=== PATIENT | female | born 1955 | race Caucasian/White ===

== ENCOUNTER 2019-12-31 10:09 | Outpatient (CLI) | payer BC, SELFPAY ==
[2019-12-31 10:34] LABS: Basophils Percent Auto 0.3 % (0.2-1.2); Eosinophils Absolute Auto 0.1 K/mm3 (0-0.3); Eosinophils Percent Auto 2.2 % (0-4.4); Hematocrit 41.5 % (37.0-47.0); Immature Granulocyte Absolute 0.01 K/mm3 (0.00-0.031); Immature Granulocyte Percent A 0.2 % (0-0.5); Lymphocytes Absolute Auto 1.44 K/mm3 (0.9-3.2); Lymphocytes Percent Auto 22.4 % (18.3-44.2); Mean Corpuscular HGB Conc 33.7 g/dl (32-36); Mean Corpuscular Hemoglobin 33.7 pg (26-34); Mean Platelet Volume 9.2 fl (7.4-10.4); Monocytes Absolute Auto 0.7 K/mm3 (0.1-0.6); Neutrophils Absolute Auto 4.1 K/mm3 (1.3-6.7); Neutrophils Percent Auto 63.9 % (45.5-73.1); Platelet Count Result 206 k/mm3 (150-375); Red Blood Count 4.15 M/mm3 (4.2-5.4); Red Cell Distribution Width 11.9 % (11.5-14.5); White Blood Count 6.4 K/mm3 (4.5-10.0)
[2019-12-31 11:15] LABS: Alanine Aminotransferase 22 U/L (4-35); Albumin Level 4.3 g/dL (3.5-5.1); Alkaline Phosphatase 92 U/L (38-126); Aspartate Amino Transferase 28 U/L (14-36); Bilirubin,Total 0.8 mg/dL (0.2-1.3); Blood Urea Nitrogen 21 mg/dL (7-17); Calcium 9.7 mg/dL (8.4-10.2); Carbon Dioxide 29 mmol/L (22-30); Chloride 101 mmol/L (98-107); Estimated Glomerular Filt Rate > 60; Glucose 114 mg/dL (65-105); Potassium 4.2 mmol/L (3.4-5.0); Sodium 138 mmol/L (137-145)
[2020-01-02 04:11] LABS: CA 27.29 19 U/mL (<38)
== END 2019-12-31 10:10 | disposition home or self-care (01) ==
PROVIDERS: Visit Provider Internal Medicine Hematology & Oncology
DX: C50.411 Malignant neoplasm of upper-outer quadrant of right female breast (principal); Z17.0 Estrogen receptor positive status [ER+]
CPT/HCPCS: 36415; 80053; 85025; 86300

== ENCOUNTER 2020-03-24 10:19 | Outpatient (CLI) | payer BC, SELFPAY ==
[2020-03-24 10:31] LABS: Basophils Percent Auto 0.5 % (0.2-1.2); Eosinophils Absolute Auto 0.2 K/mm3 (0-0.3); Eosinophils Percent Auto 3.8 % (0-4.4); Hematocrit 39.2 % (37.0-47.0); Hemoglobin 13.5 g/dL (12.0-15.0); Immature Granulocyte Absolute 0.01 K/mm3 (0.00-0.031); Immature Granulocyte Percent A 0.2 % (0-0.5); Lymphocytes Absolute Auto 1.33 K/mm3 (0.9-3.2); Mean Corpuscular HGB Conc 34.4 g/dl (32-36); Mean Corpuscular Hemoglobin 33.6 pg (26-34); Mean Corpuscular Volume 97.5 fl (80-100); Mean Platelet Volume 9.1 fl (7.4-10.4); Monocytes Absolute Auto 0.7 K/mm3 (0.1-0.6); Monocytes Percent Auto 11.1 % (2.6-8.5); Neutrophils Absolute Auto 3.8 K/mm3 (1.3-6.7); Neutrophils Percent Auto 62.4 % (45.5-73.1); Platelet Count Result 205 k/mm3 (150-375); Red Blood Count 4.02 M/mm3 (4.2-5.4); Red Cell Distribution Width 12.2 % (11.5-14.5)
[2020-03-24 11:31] LABS: Alanine Aminotransferase 24 U/L (4-35); Alkaline Phosphatase 96 U/L (38-126); Aspartate Amino Transferase 31 U/L (14-36); Bilirubin,Total 0.5 mg/dL (0.2-1.3); Blood Urea Nitrogen 18 mg/dL (7-17); Calcium 9.4 mg/dL (8.4-10.2); Carbon Dioxide 27 mmol/L (22-30); Chloride 100 mmol/L (98-107); Estimated Glomerular Filt Rate > 60; Glucose 119 mg/dL (65-105); Potassium 4.2 mmol/L (3.4-5.0); Sodium 137 mmol/L (137-145)
[2020-03-29 23:12] LABS: CA 27.29 27 U/mL (<38)
== END 2020-03-24 10:20 | disposition home or self-care (01) ==
PROVIDERS: Visit Provider Internal Medicine Hematology & Oncology
DX: C50.411 Malignant neoplasm of upper-outer quadrant of right female breast (principal); Z17.0 Estrogen receptor positive status [ER+]
CPT/HCPCS: 36415; 80053; 85025; 86300

== ENCOUNTER 2020-07-28 08:41 | Outpatient (CLI) | payer BC, SELFPAY ==
[2020-07-28 08:57] LABS: Basophils Percent Auto 0.2 % (0.2-1.2); Eosinophils Absolute Auto 0.2 K/mm3 (0-0.3); Eosinophils Percent Auto 3.3 % (0-4.4); Hemoglobin 13.5 g/dL (12.0-15.0); Immature Granulocyte Absolute 0.01 K/mm3 (0.00-0.031); Immature Granulocyte Percent A 0.2 % (0-0.5); Lymphocytes Percent Auto 24.5 % (18.3-44.2); Mean Corpuscular HGB Conc 34.6 g/dl (32-36); Mean Corpuscular Hemoglobin 33.4 pg (26-34); Mean Corpuscular Volume 96.5 fl (80-100); Mean Platelet Volume 9.1 fl (7.4-10.4); Monocytes Absolute Auto 0.7 K/mm3 (0.1-0.6); Monocytes Percent Auto 14.3 % (2.6-8.5); Neutrophils Absolute Auto 2.8 K/mm3 (1.3-6.7); Neutrophils Percent Auto 57.5 % (45.5-73.1); Platelet Count Result 197 k/mm3 (150-375); Red Blood Count 4.04 M/mm3 (4.2-5.4); Red Cell Distribution Width 11.9 % (11.5-14.5); White Blood Count 4.9 K/mm3 (4.5-10.0)
[2020-07-28 11:45] LABS: Alanine Aminotransferase 34 U/L (4-35); Albumin Level 4.2 g/dL (3.5-5.1); Alkaline Phosphatase 89 U/L (38-126); Anion Gap 10 mmol/L (8-16); Aspartate Amino Transferase 41 U/L (14-36); Bilirubin,Total 0.5 mg/dL (0.2-1.3); Blood Urea Nitrogen 21 mg/dL (7-17); Calcium 9.3 mg/dL (8.4-10.2); Carbon Dioxide 28 mmol/L (22-30); Chloride 100 mmol/L (98-107); Cholesterol 110 mg/dL (0-200); Estimated Glomerular Filt Rate > 60; Glucose 132 mg/dL (65-105); HDL Direct 34 mg/dL; Potassium 4.2 mmol/L (3.4-5.0); Sodium 138 mmol/L (137-145); Triglycerides 112 mg/dL (<150)
[2020-07-28 11:47] LABS: Hemoglobin A1C 6.2 % (<5.7)
[2020-07-28 11:56] LABS: LDL Cholesterol Direct 52 mg/dL
[2020-08-04 06:58] LABS: CA 27.29 23 U/mL (<38)
== END 2020-07-28 08:42 | disposition home or self-care (01) ==
LOC: ANHLAB 08:42
PROVIDERS: PCP Family Medicine; Visit Provider Internal Medicine Hematology & Oncology
DX: R73.03 Prediabetes (principal); E03.9 Hypothyroidism, unspecified; E78.2 Mixed hyperlipidemia; C50.411 Malignant neoplasm of upper-outer quadrant of right female breast; Z17.0 Estrogen receptor positive status [ER+]
CPT/HCPCS: 36415; 80053; 80061; 83036; 84443; 85025; 86300

== ENCOUNTER 2020-11-03 12:26 | Outpatient (CLI) | payer BC, SELFPAY ==
[2020-11-03 12:58] LABS: Basophils Percent Auto 0.4 % (0.2-1.2); Eosinophils Absolute Auto 0.2 K/mm3 (0-0.3); Eosinophils Percent Auto 2.5 % (0-4.4); Hematocrit 39.9 % (37.0-47.0); Hemoglobin 13.8 g/dL (12.0-15.0); Immature Granulocyte Absolute 0.02 K/mm3 (0.00-0.031); Immature Granulocyte Percent A 0.3 % (0-0.5); Lymphocytes Absolute Auto 1.87 K/mm3 (0.9-3.2); Lymphocytes Percent Auto 24.9 % (18.3-44.2); Mean Corpuscular HGB Conc 34.6 g/dl (32-36); Mean Corpuscular Hemoglobin 33.6 pg (26-34); Mean Corpuscular Volume 97.1 fl (80-100); Mean Platelet Volume 9.4 fl (7.4-10.4); Monocytes Absolute Auto 0.8 K/mm3 (0.1-0.6); Neutrophils Absolute Auto 4.7 K/mm3 (1.3-6.7); Neutrophils Percent Auto 61.9 % (45.5-73.1); Platelet Count Result 230 k/mm3 (150-375); Red Blood Count 4.11 M/mm3 (4.2-5.4); White Blood Count 7.5 K/mm3 (4.5-10.0)
[2020-11-03 15:10] LABS: Alanine Aminotransferase 34 U/L (4-35); Albumin Level 4.1 g/dL (3.5-5.1); Alkaline Phosphatase 85 U/L (38-126); Anion Gap 6 mmol/L (8-16); Aspartate Amino Transferase 39 U/L (14-36); Bilirubin,Total 0.7 mg/dL (0.2-1.3); Blood Urea Nitrogen 21 mg/dL (7-17); Calcium 9.5 mg/dL (8.4-10.2); Carbon Dioxide 29 mmol/L (22-30); Chloride 102 mmol/L (98-107); Estimated Glomerular Filt Rate > 60; Glucose 113 mg/dL (65-105); Sodium 137 mmol/L (137-145)
[2020-11-06 08:00] LABS: CA 15-3 12 U/mL (<32)
== END 2020-11-03 12:27 | disposition home or self-care (01) ==
PROVIDERS: PCP Family Medicine; Visit Provider Internal Medicine Hematology & Oncology
DX: C50.411 Malignant neoplasm of upper-outer quadrant of right female breast (principal); Z17.0 Estrogen receptor positive status [ER+]
CPT/HCPCS: 36415; 80053; 85025; 86300

== ENCOUNTER 2020-11-03 13:58 | Outpatient (CLI) | payer BC, SELFPAY ==
--- NOTE | ~2020-11-03 | DEXA_ITS ---
Bone Density Report Name: Raquel Lee Age: 65 Sex: Female Ethnicity: White Date of : 1955 Indication: postmenopausal; height loss; cancer; Referring Provider: Josué Lopez Study: Bone densitometry was performed. Exam Date: November 03, 2020 Accession number: [id number] Bone Density: Region BMD T-score Z-score Classification AP Spine (L1-L4) 1.059 0.1 1.8 Normal Femoral Neck (Left) 0.954 0.9 2.4 Normal Total Hip (Left) 1.242 2.5 3.6 Normal Total Hip Bilateral Avg 1.255 2.6 3.7 Normal Femoral Neck (Right) 0.997 1.3 2.8 Normal Total Hip (Right) 1.266 2.7 3.8 Normal World Health Organization criteria for BMD impression classify patients as: Normal (T-score at or above -1.0), Osteopenia (T-score between -1.0 and -2.5), or Osteoporosis (T-score at or below -2.5). 10-year Fracture Risk: FRAX not reported because: All T-scores for Spine Total, Hip Total, Femoral Neck at or above -1.0 Clinical Information Provided by Patient: Has the following medical conditions: Cancer Patient maximum height was 66 Menopause Age: 46 No regular weight bearing exercise Drinks caffeinated beverages Onset of menses at age 13 Number of children 2 Impression: The patient has normal bone mass. Discussion: BONE DENSITY IS ABOVE THE MINIMUM DESIRABLE LEVEL AT ALL SKELETAL SITES TESTED. This patient?s bone mineral density is above the minimum desirable level (T-score -1.0 or better) at all sites measured. The patient should follow a healthful lifestyle (good nutrition with adequate calcium and vitamin D, and appropriate weight-bearing exercise). Follow-Up: Consider repeating this study in 5 years or sooner if there is some new clinical indication. Reported by: [facility] on 11/03/2020 2:37:00 PM. Reviewed, dictated and finalized at location [facility]
== END 2020-11-03 13:59 | disposition home or self-care (01) ==
PROVIDERS: PCP Family Medicine; Visit Provider Internal Medicine Hematology & Oncology
DX: M85.89 Other specified disorders of bone density and structure, multiple sites (principal)
CPT/HCPCS: 77080

== ENCOUNTER 2021-03-10 12:28 | Outpatient (CLI) | payer BC, SELFPAY ==
[2021-03-10 12:53] LABS: Basophils Percent Auto 0.4 % (0.2-1.2); Eosinophils Absolute Auto 0.1 K/mm3 (0-0.3); Eosinophils Percent Auto 1.8 % (0-4.4); Hematocrit 38.4 % (37.0-47.0); Hemoglobin 13.3 g/dL (12.0-15.0); Immature Granulocyte Absolute 0.01 K/mm3 (0.00-0.031); Immature Granulocyte Percent A 0.2 % (0-0.5); Lymphocytes Percent Auto 24.1 % (18.3-44.2); Mean Corpuscular HGB Conc 34.6 g/dl (32-36); Mean Corpuscular Hemoglobin 33.3 pg (26-34); Mean Corpuscular Volume 96.2 fl (80-100); Mean Platelet Volume 8.7 fl (7.4-10.4); Monocytes Absolute Auto 0.7 K/mm3 (0.1-0.6); Monocytes Percent Auto 13.5 % (2.6-8.5); Platelet Count Result 186 k/mm3 (150-375); Red Blood Count 3.99 M/mm3 (4.2-5.4); Red Cell Distribution Width 11.9 % (11.5-14.5)
[2021-03-10 16:18] LABS: Alanine Aminotransferase 38 U/L (4-35); Albumin Level 4.1 g/dL (3.5-5.1); Alkaline Phosphatase 98 U/L (38-126); Anion Gap 8 mmol/L (8-16); Aspartate Amino Transferase 44 U/L (14-36); Bilirubin,Total 0.6 mg/dL (0.2-1.3); Blood Urea Nitrogen 21 mg/dL (7-17); Calcium 9.4 mg/dL (8.4-10.2); Carbon Dioxide 27 mmol/L (22-30); Chloride 102 mmol/L (98-107); Estimated Glomerular Filt Rate > 60; Glucose 118 mg/dL (65-105); Potassium 4.1 mmol/L (3.4-5.0); Sodium 137 mmol/L (137-145)
[2021-03-13 06:53] LABS: CA 15-3 14 U/mL (<32)
== END 2021-03-10 12:29 | disposition home or self-care (01) ==
LOC: ANHLAB 12:30
PROVIDERS: PCP Family Medicine; Visit Provider Internal Medicine Hematology & Oncology
DX: C50.411 Malignant neoplasm of upper-outer quadrant of right female breast (principal); Z17.0 Estrogen receptor positive status [ER+]
CPT/HCPCS: 36415; 80053; 85025; 86300

== ENCOUNTER 2022-01-04 13:08 | Outpatient (RCR) | payer MEDICARE, SELFPAY ==
[2022-01-04 13:16] VITALS: BMI 42.2
[2022-01-04 13:22] VITALS: BMI 42.2
== END 2022-03-23 11:43 | disposition home or self-care (01) ==
LOC: ANHDMC 13:08
PROVIDERS: PCP Family Medicine; Visit Provider Family Medicine
DX: E11.9 Type 2 diabetes mellitus without complications (principal); Z71.3 Dietary counseling and surveillance
CPT/HCPCS: 97802

== ENCOUNTER 2022-04-06 13:04 | Outpatient (CLI) | payer MEDICARE, SELFPAY ==
[2022-04-06 13:22] LABS: Basophils Percent Auto 0.4 % (0.2-1.2); Eosinophils Absolute Auto 0.2 K/mm3 (0-0.3); Hematocrit 39.7 % (37.0-47.0); Hemoglobin 13.2 g/dL (12.0-15.0); Immature Granulocyte Absolute 0.02 K/mm3 (0.00-0.031); Immature Granulocyte Percent A 0.3 % (0-0.5); Lymphocytes Absolute Auto 1.48 K/mm3 (0.9-3.2); Lymphocytes Percent Auto 19.9 % (18.3-44.2); Mean Corpuscular HGB Conc 33.2 g/dl (32-36); Mean Corpuscular Hemoglobin 33.6 pg (26-34); Mean Platelet Volume 9.7 fl (7.4-10.4); Monocytes Absolute Auto 0.5 K/mm3 (0.1-0.6); Monocytes Percent Auto 6.6 % (2.6-8.5); Neutrophils Absolute Auto 5.3 K/mm3 (1.3-6.7); Neutrophils Percent Auto 70.8 % (45.5-73.1); Platelet Count Result 181 k/mm3 (150-375); Red Blood Count 3.93 M/mm3 (4.2-5.4); Red Cell Distribution Width 11.9 % (11.5-14.5); White Blood Count 7.4 K/mm3 (4.5-10.0)
[2022-04-06 13:27] LABS: Blood Urea Nitrogen 25 mg/dL (8-26); Carbon Dioxide 29 mmol/L (22-30); Chloride 102 mmol/L (98-109); Estimated Glomerular Filt Rate 56; Glucose 153 mg/dL (70-105); Ionized Calcium (POC) 1.17 mmol/L (1.11-1.31); Sodium 140 mmol/L (138-146)
[2022-04-06 15:04] LABS: Alanine Aminotransferase 22 U/L (6-35); Albumin Level 4.1 g/dL (3.5-5.1); Alkaline Phosphatase 86 U/L (38-126); Anion Gap 9 mmol/L (8-16); Aspartate Amino Transferase 30 U/L (14-36); Bilirubin,Total 0.8 mg/dL (0.2-1.3); Blood Urea Nitrogen 25 mg/dL (7-17); Calcium 9.6 mg/dL (8.4-10.2); Carbon Dioxide 29 mmol/L (22-30); Chloride 101 mmol/L (98-107); Estimated Glomerular Filt Rate > 60; Glucose 148 mg/dL (65-110); Potassium 3.9 mmol/L (3.4-5.0); Sodium 139 mmol/L (137-145)
== END 2022-04-06 13:05 | disposition home or self-care (01) ==
LOC: ANHLAB 13:07
PROVIDERS: PCP Family Medicine; Visit Provider Internal Medicine Hematology & Oncology
DX: C50.411 Malignant neoplasm of upper-outer quadrant of right female breast (principal); Z17.0 Estrogen receptor positive status [ER+]
CPT/HCPCS: 36415; 80047; 80053; 85025

== ENCOUNTER 2022-10-11 09:58 | Outpatient (CLI) | payer MEDICARE, SELFPAY ==
[2022-10-11 10:09] LABS: Basophils Percent Auto 0.3 % (0.2-1.2); Eosinophils Absolute Auto 0.3 K/mm3 (0-0.3); Eosinophils Percent Auto 4.7 % (0-4.4); Hematocrit 39.2 % (37.0-47.0); Hemoglobin 13.4 g/dL (12.0-15.0); Immature Granulocyte Absolute 0.02 K/mm3 (0.00-0.031); Immature Granulocyte Percent A 0.3 % (0-0.5); Lymphocytes Absolute Auto 1.64 K/mm3 (0.9-3.2); Lymphocytes Percent Auto 26.4 % (18.3-44.2); Mean Corpuscular HGB Conc 34.2 g/dl (32-36); Mean Corpuscular Hemoglobin 34.3 pg (26-34); Mean Corpuscular Volume 100.3 fl (80-100); Mean Platelet Volume 9.1 fl (7.4-10.4); Monocytes Absolute Auto 0.7 K/mm3 (0.1-0.6); Monocytes Percent Auto 11.6 % (2.6-8.5); Neutrophils Absolute Auto 3.5 K/mm3 (1.3-6.7); Neutrophils Percent Auto 56.7 % (45.5-73.1); Platelet Count Result 209 k/mm3 (150-375); Red Blood Count 3.91 M/mm3 (4.2-5.4); Red Cell Distribution Width 12.1 % (11.5-14.5); White Blood Count 6.2 K/mm3 (4.5-10.0)
[2022-10-11 10:29] LABS: Alanine Aminotransferase 33 U/L (6-35); Albumin Level 4.2 g/dL (3.5-5.1); Alkaline Phosphatase 95 U/L (38-126); Anion Gap 6 mmol/L (8-16); Aspartate Amino Transferase 41 U/L (14-36); Bilirubin,Total 0.6 mg/dL (0.2-1.3); Blood Urea Nitrogen 19 mg/dL (7-17); Calcium 9.5 mg/dL (8.4-10.2); Carbon Dioxide 31 mmol/L (22-30); Chloride 102 mmol/L (98-107); Estimated Glomerular Filt Rate > 60; Glucose 167 mg/dL (65-110); Potassium 4.3 mmol/L (3.4-5.0); Sodium 139 mmol/L (137-145)
[2022-10-13 21:01] LABS: CA 15-3 17 U/mL (<32)
== END 2022-10-11 09:59 | disposition home or self-care (01) ==
LOC: ANHLAB 10:00
PROVIDERS: PCP Family Medicine; Visit Provider Internal Medicine Hematology & Oncology
DX: C50.411 Malignant neoplasm of upper-outer quadrant of right female breast (principal); Z17.0 Estrogen receptor positive status [ER+]
CPT/HCPCS: 36415; 80053; 85025; 86300

== ENCOUNTER 2023-04-25 09:41 | Outpatient (CLI) | payer MEDICARE, SELFPAY ==
[2023-04-25 10:04] LABS: Basophils Percent Auto 0.4 % (0.2-1.2); Eosinophils Absolute Auto 0.2 K/mm3 (0-0.3); Eosinophils Percent Auto 2.8 % (0-4.4); Hematocrit 39.9 % (37.0-47.0); Hemoglobin 13.7 g/dL (12.0-15.0); Immature Granulocyte Absolute 0.01 K/mm3 (0.00-0.031); Immature Granulocyte Percent A 0.2 % (0-0.5); Lymphocytes Absolute Auto 1.44 K/mm3 (0.9-3.2); Lymphocytes Percent Auto 27.1 % (18.3-44.2); Mean Corpuscular HGB Conc 34.3 g/dl (32-36); Mean Corpuscular Hemoglobin 33.9 pg (26-34); Mean Corpuscular Volume 98.8 fl (80-100); Monocytes Absolute Auto 0.5 K/mm3 (0.1-0.6); Monocytes Percent Auto 9.2 % (2.6-8.5); Neutrophils Absolute Auto 3.2 K/mm3 (1.3-6.7); Neutrophils Percent Auto 60.3 % (45.5-73.1); Platelet Count Result 197 k/mm3 (150-375); Red Blood Count 4.04 M/mm3 (4.2-5.4); Red Cell Distribution Width 11.8 % (11.5-14.5); White Blood Count 5.3 K/mm3 (4.5-10.0)
[2023-04-25 12:09] LABS: Alanine Aminotransferase 42 U/L (6-35); Albumin Level 4.3 g/dL (3.5-5.1); Alkaline Phosphatase 102 U/L (38-126); Anion Gap 6 mmol/L (8-16); Aspartate Amino Transferase 55 U/L (14-36); Bilirubin,Total 0.8 mg/dL (0.2-1.3); Blood Urea Nitrogen 23 mg/dL (7-17); Carbon Dioxide 32 mmol/L (22-30); Chloride 98 mmol/L (98-107); Estimated Glomerular Filt Rate > 60; Glucose 188 mg/dL (65-110); Potassium 4.2 mmol/L (3.4-5.0); Sodium 136 mmol/L (137-145)
[2023-04-29 06:12] LABS: CA 15-3 14 U/mL (<32)
== END 2023-04-25 09:42 | disposition home or self-care (01) ==
LOC: ANHLAB 09:44
PROVIDERS: PCP Family Medicine; Visit Provider Internal Medicine Hematology & Oncology
DX: C50.411 Malignant neoplasm of upper-outer quadrant of right female breast (principal); Z17.0 Estrogen receptor positive status [ER+]
CPT/HCPCS: 36415; 80053; 85025; 86300

== ENCOUNTER 2023-10-23 12:16 | Outpatient (CLI) | payer MEDICARE, SELFPAY ==
[2023-10-23 12:31] LABS: Basophils Percent Auto 0.4 % (0.2-1.2); Eosinophils Absolute Auto 0.1 K/mm3 (0-0.3); Eosinophils Percent Auto 1.5 % (0-4.4); Hematocrit 37.2 % (37.0-47.0); Hemoglobin 12.9 g/dL (12.0-15.0); Immature Granulocyte Absolute 0.03 K/mm3 (0.00-0.031); Immature Granulocyte Percent A 0.3 % (0-0.5); Lymphocytes Absolute Auto 1.58 K/mm3 (0.9-3.2); Lymphocytes Percent Auto 16.8 % (18.3-44.2); Mean Corpuscular HGB Conc 34.7 g/dl (32-36); Mean Corpuscular Hemoglobin 33.5 pg (26-34); Mean Corpuscular Volume 96.6 fl (80-100); Mean Platelet Volume 8.8 fl (7.4-10.4); Monocytes Absolute Auto 0.8 K/mm3 (0.1-0.6); Monocytes Percent Auto 8.9 % (2.6-8.5); Neutrophils Absolute Auto 6.8 K/mm3 (1.3-6.7); Neutrophils Percent Auto 72.1 % (45.5-73.1); Platelet Count Result 221 k/mm3 (150-375); Red Blood Count 3.85 M/mm3 (4.2-5.4); Red Cell Distribution Width 11.9 % (11.5-14.5); White Blood Count 9.4 K/mm3 (4.5-10.0)
[2023-10-23 14:11] LABS: Alanine Aminotransferase 27 U/L (6-35); Albumin Level 4.2 g/dL (3.5-5.1); Alkaline Phosphatase 92 U/L (38-126); Anion Gap 6 mmol/L (8-16); Aspartate Amino Transferase 30 U/L (14-36); Bilirubin,Total 0.8 mg/dL (0.2-1.3); Blood Urea Nitrogen 22 mg/dL (7-17); Calcium 10.4 mg/dL (8.4-10.2); Carbon Dioxide 30 mmol/L (22-30); Chloride 101 mmol/L (98-107); Estimated Glomerular Filt Rate > 60; Glucose 179 mg/dL (65-110); Potassium 3.8 mmol/L (3.4-5.0); Sodium 137 mmol/L (137-145)
[2023-10-26 07:30] LABS: CA 15-3 16 U/mL (<32)
== END 2023-10-23 12:17 | disposition home or self-care (01) ==
LOC: ANHLAB 12:18
PROVIDERS: PCP Family Medicine; Visit Provider Internal Medicine Hematology & Oncology
DX: C50.411 Malignant neoplasm of upper-outer quadrant of right female breast (principal); Z17.0 Estrogen receptor positive status [ER+]
CPT/HCPCS: 36415; 80053; 85025; 86300

== ENCOUNTER 2024-04-23 13:35 | Outpatient (CLI) | payer MEDICARE, SELFPAY ==
[2024-04-23 13:51] LABS: Basophils Percent Auto 0.4 % (0.2-1.2); Eosinophils Absolute Auto 0.1 K/mm3 (0-0.3); Eosinophils Percent Auto 1.1 % (0-4.4); Hematocrit 38.7 % (37.0-47.0); Hemoglobin 13.4 g/dL (12.0-15.0); Immature Granulocyte Absolute 0.02 K/mm3 (0.00-0.031); Immature Granulocyte Percent A 0.3 % (0-0.5); Lymphocytes Absolute Auto 1.75 K/mm3 (0.9-3.2); Lymphocytes Percent Auto 22.3 % (18.3-44.2); Mean Corpuscular HGB Conc 34.6 g/dl (32-36); Mean Corpuscular Hemoglobin 33.9 pg (26-34); Monocytes Absolute Auto 0.9 K/mm3 (0.1-0.6); Neutrophils Absolute Auto 5.1 K/mm3 (1.3-6.7); Neutrophils Percent Auto 64.9 % (45.5-73.1); Platelet Count Result 225 k/mm3 (150-375); Red Blood Count 3.95 M/mm3 (4.2-5.4); Red Cell Distribution Width 11.9 % (11.5-14.5); White Blood Count 7.9 K/mm3 (4.5-10.0)
[2024-04-23 16:37] LABS: Alanine Aminotransferase 35 U/L (6-35); Albumin Level 4.3 g/dL (3.5-5.1); Alkaline Phosphatase 89 U/L (38-126); Anion Gap 10 mmol/L (4-12); Aspartate Amino Transferase 36 U/L (14-36); Bilirubin,Total 0.8 mg/dL (0.2-1.3); Blood Urea Nitrogen 23 mg/dL (7-17); Calcium 9.9 mg/dL (8.4-10.2); Carbon Dioxide 30 mmol/L (22-30); Chloride 95 mmol/L (98-107); Estimated Glomerular Filt Rate > 60; Glucose 124 mg/dL (65-110); Potassium 4.2 mmol/L (3.4-5.0); Sodium 135 mmol/L (137-145)
[2024-04-25 04:00] LABS: CA 15-3 14 U/mL (<32)
== END 2024-04-23 13:36 | disposition home or self-care (01) ==
LOC: ANHLAB 13:39
PROVIDERS: PCP Family Medicine; Visit Provider Internal Medicine Hematology & Oncology
DX: C50.411 Malignant neoplasm of upper-outer quadrant of right female breast (principal); Z17.0 Estrogen receptor positive status [ER+]
CPT/HCPCS: 36415; 77080; 80053; 85025; 86300

== ENCOUNTER 2024-04-23 14:14 | Outpatient (CLI) | payer MEDICARE, SELFPAY ==
--- NOTE | ~2024-04-23 | DEXA_ITS ---
Bone Density Report Name: ROYER METZGER Age: 68 Sex: Female Ethnicity: White Date of : 1955 Indication: postmenopausal; screening for osteoporosis; cancer; Referring Provider: GEORGIE DAVENPORT Study: Bone densitometry was performed. Exam Date: April 23, 2024 Accession number: [id number] Bone Density: Region BMD T-score Z-score Classification AP Spine(L1-L4) 1.086 0.4 2.3 Normal Femoral Neck (Left) 0.939 0.8 2.5 Normal Total Hip (Left) 1.176 1.9 3.3 Normal Femoral Neck (Right) 0.965 1.0 2.7 Normal Total Hip (Right) 1.200 2.1 3.5 Normal Total Hip Mean 1.188 2.0 3.4 Normal World Health Organization criteria for BMD impression classify patients as: Normal (T-score at or above -1.0), Osteopenia (T-score between -1.0 and -2.5), or Osteoporosis (T-score at or below -2.5). 10-year Fracture Risk: FRAX not reported because: All T-scores for Spine Total, Hip Total, Femoral Neck at or above -1.0 Previous Exams: Region Exam Age BMD T-score BMD Change BMD Change Date g/cm2 vs Baseline vs Previous AP Spine (L1-L4) 04/23/2024 68 1.086 0.4 0.028 (2.6%)# 0.028 (2.6%)# 11/03/2020 65 1.059 0.1 Total Hip(Left) 04/23/2024 68 1.176 1.9 -0.066 (-5.3%) -0.066 (-5.3%) 11/03/2020 65 1.242 2.5 Total Hip(Right) 04/23/2024 68 1.200 2.1 -0.066 (-5.2%) -0.066 (-5.2%) 11/03/2020 65 1.266 2.7 *Denotes significance at 95% confidence level, LSC for AP Spine = 0.022 g/cm2, LSC for Total Hip = 0.027 g/cm2 # Denotes dissimilar scan types or analysis methods Clinical Information Provided by Patient: Has used the following medications: Vitamin D Has the following medical conditions: Cancer Patient maximum height was 65 Menopause Age: 46 No regular weight bearing exercise Drinks caffeinated beverages Onset of menses at age 14 Number of children 2 Impression: The patient has normal bone mass. No significant bone loss was observed. Discussion: LOW RISK OF FRACTURE; BONE DENSITY IS WELL ABOVE THE MINIMUM DESIRABLE LEVEL AND ABOVE AVERAGE FOR AGE AND SEX AT ALL SKELETAL SITES TESTED. This person's bone density is above expected limits for age and sex. This is rarely clinically significant, but should be pursued if there are significant musculoskeletal complaints. The patient should follow a healthful lifestyle (good nutrition with adequate calcium and vitamin D, and appropriate weight-bearing exercise). Follow-Up: Consider re
== END 2024-04-23 14:15 | disposition home or self-care (01) ==
LOC: ANHIMG 14:14
PROVIDERS: PCP Family Medicine; Visit Provider Internal Medicine Hematology & Oncology
DX: M85.89 Other specified disorders of bone density and structure, multiple sites (principal)
CPT/HCPCS: 77080

== ENCOUNTER 2024-10-31 13:23 | Outpatient (CLI) | payer MEDICARE, SELFPAY ==
--- OUTSIDE RECORDS SUMMARY | 2024-10-31 13:36 | XMS_ITS | Referral Summary ---
Author Organization [address] Address [address] [place] [id number] Care Team Providers Care Trommel Tender Name Role Phone Jeanne Isabel MD Primary Care Provider [phone] Allergies Active Allergy Reactions Criticality Noted Date Comments Amoxicillin-Pot Clavulanate Hives High 09/15/19 16 Cephalexin Hives High 09/15/2015 Medications albuterol HFA (ProAir HFA) 90 mcg/actuation inhalerIndicati ons:Wheezing Inhale 2 puffs every 4 (four) hours as needed for wheezing or shortness of breath 8.5 g 2 Active anastrozole (ARIMIDEX) 1 mg tablet Take 1 tablet (1 mg total) by mouth daily 9 Active clindamycin (CLEOCIN) 150 mg capsule TAKE 1 CAPSULE BY MOUTH EVERY 6 HOURS UNTIL ALL TAKEN 2 Active levothyroxine (SYNTHROID) 100 mcg tablet 9 Active valsartan-hydro chlorothiazide (DIOVAN-HCT) 320-25 mg per tablet Take 1 tablet by mouth 9 Active benzonatate (TESSALON) 100 mg capsuleIndicati ons:Cough Take 1 capsule (100 mg total) by mouth 3 (three) times a day as needed for cough 42 capsule 3 Active Active Problems No known active problems Social History Tobacco Use Types Packs/Day Years Used Date Smoking Tobacco: Never Smokeless Tobacco: Never Comments Unknown Sex and Gender Information Value Date Recorded Sex Assigned at Not on file 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 Gender Identity Not on file Sexual Orientation Not on file Last Filed Vital Signs Vital Sign Reading Time Taken Comments Blood Pressure 142/74 07/04/2023 6:46 PM CDT Pulse 84 07/04/2023 6:46 PM CDT Temperature 36.9 C (98.5 F) 07/04/2023 6:46 PM CDT Respiratory Rate 20 07/04/2023 6:46 PM CDT Oxygen Saturation 98% 07/04/2023 6:46 PM CDT Inhaled Oxygen Concentration - - Weight 117.9 kg (260 lb) 07/01/2023 10:48 AM CDT Height 162.6 cm (5' 4 ) 07/01/2023 10:48 AM CDT Body Mass Index 44.63 07/01/2023 10:48 AM CDT Plan of Treatment Not on file Procedures Procedure Name Priority Date/Time Associated Diagnosis Comments DIGITAL MAMMOGRAPHY Routine 12/16/2013 1 1:19 AM CDT from Last 3 Months or Most Recently Relevant to Health Maintenance Results * DIGITAL MAMMOGRAPHY (12/16/2013 11:19 AM CDT) Anatomical Region Laterality Modality Breast Mammography 12/16/2013 11:1 9 AM CDT Narrative 12/16/2013 11:55 AM CDT Vrl Screening Mamm Bi Acc#: [id number] Performed by: raj DATE OF EXAM: Dec 16 2013 CLINICAL HISTORY: Screen. RESULT: Two views of each breast correlated to the study dated 03/30/10 demonstrate mild fibroglandular density bilaterally. There are benign breast calcifications bilaterally. No suspicious mass or calcification is seen to suggest mammographic evidence of malignancy. Digital technology was employed plus computer-aided detection software (R2) was utilized in interpretation of these images. This facility utilizes a reminder system to notify patients of yearly mammograms. IMPRESSION: NO DEFINITIVE MAMMOGRAPHIC EVIDENCE OF MALIGNANCY. RECOMMEND ANNUAL FOLLOW UP. BI-RADS CATEGORY 2: BENIGN FINDINGS. Interpreting Physician: ASHLEE WHALEY M.D. Read on: Dec 16 2013 11:19A Transcribed by: ROSAURA On: Dec 16 2013 11:53A Approved Electronically by: ASHLEE WHALEY M.D. on: Dec 16 2013 11:55A Ordering DR: ALYSSA GUEVARA Attending : ALYSSA GUEVARA Procedure Note Provider, MD Shruti - 01/11/2017 Vrl Screening Mamm Bi Acc#: [id number] Performed by: cd DATE OF EXAM: Dec 16 2013 CLINICAL HISTORY: Screen. RESULT: Two views of each breast correlated to the study dated 03/30/10demonstrate mild fibroglandular density bilaterally. There are benignbreast calcifications bilaterally. No suspicious mass or calcification isseen to suggest mammographic evidence of malignancy. Digital technologywas employed plus computer-aided detection software (R2) was utilized ininterpretation of these images. This facility utilizes a reminder systemto notify patients of yearly mammograms. IMPRESSION: NO DEFINITIVE MAMMOGRAPHIC EVIDENCE OF MALIGNANCY. RECOMMEND ANNUALFOLLOW UP. BI-RADS CATEGORY 2: BENIGN FINDINGS. Interpreting Physician: ASHLEE WHALEY M.D. Read on: Dec 16 2013 11:19A Transcribed by: ROSAURA On: Dec 16 2013 11:53A Approved Electronically by: ASHLEE WHALEY M.D. on: Dec 16 2013 11:55A Ordering DR: ALYSSA GUEVARA Attending DR: ALYSSA GUEVARA us Historical Provider MD MUNOZ MAMMO PROCEDURES Sabrina l Result from Last 3 Months or Most Recently Relevant to Health Maintenance Insurance [facility]ICARE [facility] Care Teams Trommel Tender Relationship Specialty Start Date End Date Jeanne Isabel MD PCP - General Family Medicine 10/30/21
--- OUTSIDE RECORDS SUMMARY | 2024-10-31 13:36 | XMS_ITS | Clinical Summary ---
Author Organization [facility] Address [facility] [place] [address] Care Team Providers Care Dev Technical Mgr Name Role Phone Unavailable Primary Care Provider Unavailabl e Source Comments [facility],non-owned Affiliates and Associated Physician Practices is amultiple site organization consisting of ambulatory clinics and hospital sitesin [place], [place], [place] and [place]. This disclosure is being madepursuant to the Care Everywhere program and may not contain all information available regarding this patient. Last updated 18.[facility] [employer] Social History Tobacco Use Types Packs/Day Years Used Date Smoking Tobacco: Never Assessed Sex and Gender Information Value Date Recorded Sex Assigned at Not on file Gender Identity Not on file Sexual Orientation Not on file Plan of Treatment Health Maintenance Due Date Last Done Comments BONE DENSITY TESTING 1955 COLOGUARD (AGES 45-75) - COL ON CA SCREENING 1955 COLON MONITORING 1955 COLONOSCOPY - COLON CA SCREENING 1955 CT COLONOGRAPHY - COLON CA SCREENING 1955 Colorectal Cancer Screening 1955 FIT - COLON CA SCREENING 1955 FLEX SIG - COLON CA SCREENING 1955 LIPID TESTING 1955 HEPATITIS C SCREENING 06/11/1974 DTAP/TDAP/TD VACCINES (1 - Tdap) 1975 PNEUMOCOCCAL VACCINE 50+ (1 of 1 - PCV) 2006 ZOSTER VACCINE (1 of 2) 2006 MAMMOGRAM 11/09/2020 11/09/2018, 10/31/2018 COVID-19 VACCINE (1 - 2023-2 5 season) 2024 INFLUENZA VACCINE (#1) 2024 9, 06/28/2016 DEPRESSION SCREENING 09/11/2024 Respiratory Syncytial Virus (RSV) Vaccine Pt: or over 60 yrs (1 - 1-dose 75+ series) 2031 HEPATITIS B VACCINE Aged Out No longe r eligible based on patient's age to complete this topic HIB VACCINE Aged Out No longer eligi ble based on patient's age to complete this topic HPV VACCINE Aged Out No longer eligi ble based on patient's age to complete this topic MENINGOCOCCAL (Group B) VACCINE Aged Out No longer eligible b ased on patient's age to complete this topic MENINGOCOCCAL VACCINE Aged Out No james jigar eligible based on patient's age to complete this topic
--- OUTSIDE RECORDS SUMMARY | 2024-10-31 13:36 | XMS_ITS | Clinical Summary ---
Author Organization [facility] Address [address] [address] Phone Care Team Providers Care Environmental Maintenance Worker Name Role Phone Jeanne Isabel MD Primary Care Provider [phone] Allergies Active Allergy Reactions Criticality Noted Date Comments Amoxicillin-Pot Clavulanate Hives 09/15/19 16 Cephalexin Hives 09/15/2015 Medications GLUCOSAMINE CHONDROITIN COMPLX POIndications:Prima ry osteoarthritis of right hip Take 1,288 mg by mouth daily. Active Multiple Vitamins-Minerals (PRESERVISION AREDS PO) Take 1 Tab by mouth daily. Active anastrozole (ARIMIDEX) 1 MG Tablet Take 1 mg by mouth daily 3 9 Active levothyroxine (SYNTHROID) 100 MCG TabletIndications:H ypothyroidism (acquired) TAKE ONE TABLET BY MOUTH DAILY 90 Tab 1 0 Active valsartan-hydroCHLO ROthiazide (DIOVAN-HCT) 320-25 MG TabletIndications:E ssential hypertension TAKE ONE TABLET BY MOUTH DAILY 90 Tab 1 0 Active Active Problems Problem Noted Date Diagnosed Date Infiltrating ductal carcinoma of right breast Prediabetes 09/25/2018 ASCUS of cervix with negative high risk HPV 06/11 Hypothyroidism (acquired) 03/15/2016 IFG (impaired fasting glucose) 03/15/2016 Obesity, Class III, BMI 40-49.9 (morbid obesity) 09/15/2015 Essential hypertension 09/15/2015 Primary osteoarthritis of right hip 09/15/2015 Resolved Problems Problem Noted Date Diagnosed Date Resolved Date Hyperglycemia 03/26/2019 07/09/2019 Immunizations Immunization Administration Dates Next Due Covid-19, Mrna, Lnp-s, Pf, 3 0 Mcg/0.3 Ml Dose (Pfizer) 2021,12/03/2020,11/12/2020 Covid-19, Mrna, Lnp-s, Pf, 3 0 Mcg/0.3 Ml Dose, Tigre-sucrose ([employer] top) 03/28/2022 Influenza Vaccine, Quadrivalent, PF 07/09/2019,0 11/23/2018 Influenza, High-dose, Quadrivalent 2021 PUR FLU 3+ YRS PRES FREE QUAD IM 06/28/2016 TD VACCINE 06/25/2010 TDAP Vaccine 07/09/2019 Zoster Vaccine Recombinant 10/14/2019,08/13/2019 Zoster Vaccine, live 09/16/2014 Family History Medical History Relation Name Comments Gout Father Chronic Obstructive Pulmonary Disease Mother Relation Name Status Comments Father Alive Mother Alive Social History Tobacco Use Types Packs/Day Years Used Date Smoking Tobacco: Never Smokeless Tobacco: Never Tobacco Cessation:Counseling Given: Yes Alcohol Use Standard Drinks/Week Comments No 0 (1 standard drink = 0.6 oz pur e alcohol) PHQ-2 Answer Date Recorded PHQ-2 Score 0 05/10/2019 Comments No Sex and Gender Information Value Date Recorded Sex Assigned at Not on file Legal Sex Female 11:00 PM CDT Gender Identity Not on file Sexual Orientation Not on file Last Filed Vital Signs Vital Sign Reading Time Taken Comments Blood Pressure 130/78 07/09/2019 8:54 AM CDT Pulse 76 07/09/2019 8:54 AM CDT Temperature 36.7 C (98.1 F) 07/09/2019 8:54 AM CDT Respiratory Rate 18 07/09/2019 8:54 AM CDT Oxygen Saturation 97% 07/09/2019 8:54 AM CDT Inhaled Oxygen Concentration - - Weight 114.7 kg (252 lb 12.8 oz) 07/09/2019 8:54 AM CDT Height 162.6 cm (5' 4 ) 07/09/2019 8:54 AM CDT Body Mass Index 43.39 07/09/2019 8:54 AM CDT Plan of Treatment Health Maintenance Due Date Last Done Comments DEXA Bone Density 1955 Hepatitis C Virus (HCV) Screening 1955 Pneumococcal Immunization (50+ years) (1 of 2 - PCV) 1975 Immunochemical Fecal Occult Blood 2006 Respiratory Syncytial Virus (RSV) Immunization (Adult) (1 - Risk 60-74 years 1-dose series) 2016 Colonoscopy High Risk 04/28/2020 Mammogram 10/06/2021 10/06/2020, 10/13, 02/02/2016 Cologuard 10/18/2021 10/18/2018 Colorectal Cancer Screening 10/18/2021 Influenza Immunization (#1) 05/12/202401/2021, 07/09/2019, 11/23/2018, Additional history exists SARS-COV-2 Immunization ( season) 2024 03/28/2022, 2021, 12/03/2020, Additional history exists Colonoscopy 10/18/2028 10/18/2018 Td Immunization Every 10 Years (Adults With 1 Tdap) 07/09/2029 07/09/2019, 06/25/2010 Pap Smear Discontinued 09/25/2018, 09/11, 03/28/2017, Additional history exists Zoster Immunization Completed 10/14/2019, 08/13/2019, 09/16/2014 Hepatitis B Immunization Aged Out No longer eligible based on patient's age to complete this topic Meningococcal Immunization (ACWY) Aged Out No longer eligible based on patient's age to complete this topic Rotavirus Immunization Aged Out No lo nger eligible based on patient's age to complete this topic Procedures Procedure Name Priority Date/Time Associated Diagnosis Comments [facility] SCREENING BILATERAL DIGITAL W CAD W SASHA Routine 10/31/2018 8:53 AM FIRE DEPARTMENT MARINE ENGINEER Screening for malignant neoplasm of breast COLOGUARD Routine 10/18/2018 7:05 AM FIRE DEPARTMENT MARINE ENGINEER Screening for malignant neoplasm of colon Screening for malignant neoplasm of the rectum PAP COLLECTION Routine 09/25/2018 Well woman exam with routine gynecological exam from Last 3 Months or Most Recently Relevant to Health Maintenance Results * [facility] SCREENING BILATERAL DIGITAL W CAD W SASHA (10/31/2018 8:53 AM FIRE DEPARTMENT MARINE ENGINEER) Anatomical Region Laterality Modality breast Bilateral Mammography 10/31/2018 8:17 AM FIRE DEPARTMENT MARINE ENGINEER Narrative 10/31/2018 3:16 PM FIRE DEPARTMENT MARINE ENGINEER - [facility] SCREENING BILATERAL DIGITAL W CAD W SASHA BILATERAL DIGITAL SCREENING MAMMOGRAM 3D/2D WITH CAD WITH MEDIOLATERAL OBLIQUE CRANIOCAUDAL: 10/31/2018 The study was acquired using digital technology and interpreted from soft copy. Current study was also evaluated with ICAD version 7.2. CLINICAL: Routine screening. Patient has gained 36 lbs since last exam. Due to patient body habitus, additional images were taken in an effort to obtain adequate tissue. No personal history of cancer. No family history of breast cancer. COMPARISONS: Comparison is made to exams dated: 02/02/2016 [facility], 12/16/2013, and 03/30/2010 [facility]. BREAST TISSUE:There are scattered fibroglandular densities in both breasts. FINDINGS: There is a mass in the right breast at 11 o'clock posterior depth. No other significant masses, calcifications, or other findings are seen in either breast. IMPRESSION: BI-RAD 0 ADDITIONAL IMAGING EVALUATION NEEDED The mass in the right breast needs additional evaluation. An immediate follow-up is recommended. The patient has been or will be contacted. Electronically signed by: Anne coleman/crystal:10/31/2018 10:14:16 Homicide Squad Commanding Officer: Ella Ayala (R)(Negar), [facility] letter sent: Additional Imaging Reading location: [facility] BI-RADS: 0 Additional Imaging Evaluation Needed Procedure Note Anne Leon MD - 10/31/2018 - [facility] SCREENING BILATERAL DIGITAL W CAD W SASHA BILATERAL DIGITAL SCREENING MAMMOGRAM 3D/2D WITH CAD WITH MEDIOLATERAL OBLIQUE CRANIOCAUDAL: 10/31/2018 The study was acquired using digital technology and interpreted from soft copy. Current study was also evaluated with ICAD version 7.2. CLINICAL: Routine screening. Patient has gained 36 lbs since last exam. Due to patient body habitus, additional images were taken in an effort to obtain adequate tissue. No personal history of cancer. No family history of breast cancer. COMPARISONS: Comparison is made to exams dated: 02/02/2016 [facility], 12/16/2013, and 03/30/2010 [facility]. BREAST TISSUE:There are scattered fibroglandular densities in both breasts. FINDINGS: There is a mass in the right breast at 11 o'clock posterior depth. No other significant masses, calcifications, or other findings are seen in either breast. IMPRESSION: BI-RAD 0 ADDITIONAL IMAGING EVALUATION NEEDED The mass in the right breast needs additional evaluation. An immediate follow-up is recommended. The patient has been or will be contacted. Electronically signed by: Anne coleman/crystal:10/31/2018 10:14:16 Homicide Squad Commanding Officer: Ella Felder)(M), [facility] letter sent: Additional Imaging Reading location: [facility] BI-RADS: 0 Additional Imaging Evaluation Needed us Mari Kent MD IM MAMMO ORDERABLES Final R esult * COLOGUARD (10/18/2018 7:05 AM FIRE DEPARTMENT MARINE ENGINEER) Cologuard Negative Not Applicable [employer] Comment: A negative result indicates a low likelihood that a colorectal cancer (CRC) or an advanced adenoma (adenomatous polyps with more advanced pre-malignant features) is present. The chance that a person with a negative Cologuard test has a colorectal cancer is less than 1 in 1500 (negative predictive value >99.9%) or has an advanced adenoma is less than 5.3% (negative predictive value 94.7%). These data are based on a prospective cross-sectional screening study of 10,000 individuals at average risk for colorectal cancer who were screened with both Cologuard and colonoscopy. (Liang Yuan al, N Engl J Med 2014;370(14):8256-5617) COLOGUARD RE-SCREENING RECOMMENDATION: Periodic routine colorectal cancer screening is an important part of preventive healthcare for asymptomatic persons at average risk for colorectal cancer. Following a negative Cologuard result, the [place] [employer] and U.S. [facility]-Society Task Force screening guidelines recommend a Cologuard re-screening interval of 3 years. References: [place] [employer] (ACS). Colorectal cancer prevention and early detection. [place], [place]: [place] [employer]; [updated 2015Jan 02]. https://www.cancer.org/cancer/gfvqx-tejxud-teiism/qlzqwfqbe-zehfomgjj-epqfuxc/ acs-recommendations.html. Accessed May 11, 2018; Tal DK, Lizbeth CR, Daniel GarciaK, Colorectal Cancer Screening: Recommendations for Physicians and Patients from the U.S. Multi-Society Task Force on Colorectal Cancer Screening, Am J Gastroenterology 2017; 112:9625-3717. Test Type: Composite algorithmic analysis of stool DNA-biomarkers with hemoglobin immunoassay. Quantitative values of individual biomarkers are not reportable and are not associated with individual biomarker result reference ranges. Precautions and Limitations: Cologuard is intended for colorectal cancer screening of adults of either sex, 50 years or older, who are at typical average-risk for colorectal cancer. A negative Cologuard test result does not guarantee the absence of colorectal cancer or advanced adenoma (pre-cancer). Patients with a negative Cologuard test result should be advised to continue participating in a colorectal cancer screening program. Cologuard may produce a positive result, even though a colonoscopy may not find colorectal cancer or precancerous polyps. The performance of Cologuard has been established in a cross sectional study (i.e., single point in time). Performance has not been evaluated in adults who have been previously tested with Cologuard or in patients less than 50 years of age. Cologuard has been approved for use by the U.S. FDA. Cologuard performance data in a 10,000 patient pivotal study using colonoscopy as the reference method can be accessed at the following location: www.[employer].com/results. Additional description of the Cologuard test process, warnings and precautions can be found at www.cologuardtest.com. Rx Only. Stool specimen (specimen) 10/18/2018 7:05 AM FIRE DEPARTMENT MARINE ENGINEER 10/19/2018 10:20 AM FIRE DEPARTMENT MARINE ENGINEER us Mari Knet MD BODY FLUIDS & STOOLS ORDERAB LES Final Result [facility] [address] [place] [address], [place] [phone] * PAP COLLECTION (09/25/2018) us Mari Kent MD [place] - PREVENT MED Final Resul t from Last 3 Months or Most Recently Relevant to Health Maintenance Insurance [facility] Care Teams Environmental Maintenance Worker Relationship Specialty Start Date End Date Jeanne Isabel MD [address] [place] [address] PCP - General Family Medicine 05/24/22
--- OUTSIDE RECORDS SUMMARY | 2024-10-31 13:36 | XMS_ITS | Clinical Summary ---
Author Organization [facility] GIOVANNAKarine OSUNA [place] Address [address] [place] [address] Care Team Providers Care Element Winding Machine Tender Name Role Phone Jeanne Isabel MD Primary Care Provider [phone] Allergies Active Allergy Reactions Criticality Noted Date Comments Amoxicillin-Pot Clavulanate Hives High 09/15/19 16 Cephalexin Hives High 09/15/2015 Medications glucosam/chond /msm/boron/hya l (GLUCOSAMINE-C HONDR, MSM-HYAL, ORAL) Take 1,288 mg by mouth. Active valsartan-hydr oCHLOROthiazid e (DIOVAN HCT) 320-25 mg tablet Take 1 Tablet by mouth. 9 Active vit A/vit C/vit E/zinc/copper (ICAPS AREDS ORAL) Take by mouth. Active levothyroxine 100 mcg tablet 0 9 Active clindamycin (CLEOCIN) 150 mg capsule TAKE 1 CAPSULE BY MOUTH EVERY 6 HOURS UNTIL ALL TAKEN 2 Active metFORMIN (GLUCOPHAGE XR) 500 mg Extended Release 24 hour tablet 4 Active anastrozole (ARIMIDEX) 1 mg tabletIndicati ons:Malignant neoplasm of upper-outer quadrant of right breast in female, estrogen receptor positive (CMS/HCC) TAKE ONE TABLET BY MOUTH DAILY 90 Tablet 5 Active anastrozole (ARIMIDEX) 1 mg tabletIndicati ons:Malignant neoplasm of upper-outer quadrant of right breast in female, estrogen receptor positive (CMS/HCC) take one tablet by mouth daily 30 Tablet 4 10/03/19 25 Discontinued Active Problems Patient Care Coordination No te Formatting of this note migh t be different from the original. Primary Care: No primary care provider on file. Referring Provider: Not in an encounter context. Other: Dr. Samara Vee MD Problem Noted Date Diagnosed Date History of external beam radiation therapy 04/22 Seroma of breast 01/15/2019 Morbid obesity with body mass index of 40.0-49.9 01/15/2019 Malignant neoplasm of upper- outer quadrant of right breast in female, estrogen receptor positive 12/05/2018 Cancer Encounters Date Type Department Care Team Description 10/29/2024 External Device Data STL ABSTRACTION Provider, Abstract 10/03/2024 Refill [facility] Oncology and Hematology - Sukhjinder [address] [place] [address] [address] Josué Lopez MD Malignant neoplasm of upper-outer quadrant of right breast in female, estrogen receptor positive (CMS/HCC) 10/02/2024 External Device Data STL ABSTRACTION Provider, Abstract 10/02/2024 External Device Data STL ABSTRACTION Provider, Abstract 09/25/2024 External Device Data STL ABSTRACTION Provider, Abstract 09/24/2024 9:[address]ER - 09/24/2024 11:59 PM [facility] Hospital Encounter [facility] [address] [place] [address] Josué Lopez MD Discharge Disposition: Home or Self Care from Last 3 Months Family History Medical History Relation Name Comments Breast Cancer Neg Hx Ovarian Cancer Neg Hx Social History Tobacco Use Types Packs/Day Years Used Date Smoking Tobacco: Never Smokeless Tobacco: Never Tobacco Cessation:Counseling Given: Not Answered Alcohol Use Standard Drinks/Week Comments Yes 0 (1 standard drink = 0.6 oz pur e alcohol) rare Feeling Safe Answer Date Recorded Fear of Current or Ex-Partner Not on file Emotionally Abused Not on file 10/17/2023 Within the last year, have y ou been kicked, hit, slapped, or otherwise physically hurt by your partner or ex-partner? No 10/17/2023 Sexually Abused Not on file 10/17/2023 Comments No Sex and Gender Information Value Date Recorded Sex Assigned at Not on file Legal Sex Female 9:22 AM CDT Gender Identity Not on file Sexual Orientation Not on file Last Filed Vital Signs Vital Sign Reading Time Taken Comments Blood Pressure 136/85 04/30/2024 10:32 AM CDT Pulse 85 04/30/2024 10:29 AM CDT Temperature 36.5 C (97.7 F) 04/30/2024 10:29 AM CDT Respiratory Rate 18 04/30/2024 10:29 AM CDT Oxygen Saturation 97% 04/30/2024 10:29 AM CDT Inhaled Oxygen Concentration - - Weight 108 kg (238 lb) 04/30/2024 10:29 AM CDT Height 162.6 cm (5' 4 ) 10/17/2023 10:[address] Body Mass Index 40.85 10/17/2023 10:[address] COMMISS[address] Plan of Treatment Upcoming Encounters Date Type Department Care Team (Late st Contact Info) Description 11/07/2024 10:[address]ER Office Visit [facility] Oncology and Hematology - [place] [address] [place] [address] [facility] [address] [place] [address] Josué Lopez MD [address] [facility] [address] [place] [address] Health Maintenance Due Date Last Done Comments Pre-Diabetes and Diabetes Screening 1955 Traditional Medicare (ACO) A nnual Wellness Visit 1975 COLORECTAL SCREENING 2001 Colorectal Cancer Screening 2001 FIT-DNA Q 3 years 2001 FIT/FOBT Q 1 year 2001 Flex Sig/CT Colonography Q 5 years 2001 PNEUMOCOCCAL VACCINE 65+ YEA RS (1 of 1 - PCV) 2006 RSV VACCINE (60+ or ) (1 - Risk 60-74 years 1-dose series) 2016 INFLUENZA VACCINE (#1) 2024 , 07/09/2019, 11/23/2018, Additional history exists COVID-19 Vaccine ( - 2023-2 5 season) 2024 03/28/2022, 2021, 12/03/2020, Additional history exists BREAST CANCER SCREENING 09/24/2025 09/24/19, 10/17/2023, 10/13/2022, Additional history exists DTAP/TDAP/TD VACCINES (2 - T d or Tdap) 07/09/2029 07/09/2019 ZOSTER VACCINE Completed 10/14/2019, 12/11/2018, 09/16/2014 OSTEOPOROSIS SCREENING Completed 04/23/2024, 2020 Procedures Procedure Name Priority Date/Time Associated Diagnosis Comments MAMMO 3D SASHA SCREEN BILAT W OR WO CAD Routine 09/24/2024 9:[address] COMMISS[address]ER Visit for screening mammogram XR DEXA BONE DENSITY AXIAL 1 OR MORE SITES Routine 11/03/2020 Osteopenia of multiple sites from Last 3 Months or Most Recently Relevant to Health Maintenance Results * MAMMO 3D SASHA SCREEN BILAT W OR WO CAD (09/24/2024 9:[address] COMMISSIONER) Anatomical Region Laterality Modality Breast Bilateral Mammography 09/24/2024 9:[address] COMMISS[address]ER Impressions 09/24/2024 11:[address] COMMISS[address]ER IMPRESSION: No mammographic evidence of malignancy. RECOMMENDATIONS: Routine screening mammogram in one year. DICTATION LOCATION: [facility] 09/24/2024 11:[address] COMMISSIONER EXAM: BILATERAL SCREENING FULL-FIELD DIGITAL MAMMOGRAM WITH CAD WITH 3D TOMOSYNTHESIS DATE: 09/24/2024 9:53 AM HISTORY: Personal history of breast cancer with prior right conservation therapy. TECHNIQUE: Mediolateral oblique and craniocaudal views of both breasts were performed using full-field digital mammography. Low-dose full-field digital breast tomosynthesis examination was performed with 2D and 3D acquisitions. Examination is read in conjunction with computer aided detection. COMPARISON: September 2020 through October 2023 BREAST COMPOSITION: There are scattered areas of fibroglandular density. FINDINGS: Mammographic changes consistent with breast conservation therapy on the right are noted. No suspicious findings are seen on the mammogram. Since the prior study, there has been no significant change. Computer aided diagnosis detected no significant abnormality. OVERALL FINAL ASSESSMENT: BI-RADS CATEGORY 2 - Benign findings us Josué Lopez MD MAMMO ORDERABLES Final Result * XR DEXA BONE DENSITY AXIAL 1 OR MORE SITES (11/03/2020) Anatomical Region Laterality Modality Other Josué Lopez MD DIAGNOSTIC IMAGING ORDERABLES F inal Result from Last 3 Months or Most Recently Relevant to Health Maintenance Insurance MEDICARE PART A AND B [employer] SUPP MEDICARE PART A AND B [facility] SUPP Care Teams Element Winding Machine Tender Relationship Specialty Start Date End Date Jeanne Isabel MD [address] [place] [id number] PCP - General Family Practice 05/04/23
--- OUTSIDE RECORDS SUMMARY | 2024-10-31 13:36 | XMS_ITS | Encounter Summary ---
Author Organization [facility] Address [address] [place] [address] Care Team Providers Care Bss Solution Architect Name Role Phone Jeanne Isabel MD Primary Care Provider [phone] Encounter Details Date Type Department Care Team (Late st Contact Info) Description 01/15/2019 Chart Note [facility] Radiation Therapy [address] [place] [address] [place] [address] [place] [address] Social History Tobacco Use Types Packs/Day Years Used Date Smoking Tobacco: Never Smokeless Tobacco: Never Alcohol Use Standard Drinks/Week Comments Yes 0 (1 standard drink = 0.6 oz pur e alcohol) rare Comments No Sex and Gender Information Value Date Recorded Sex Assigned at Not on file Legal Sex Female 9:22 AM CDT Gender Identity Not on file Sexual Orientation Not on file documented as of this encounter Plan of Treatment Upcoming Encounters Date Type Department Care Team (Late st Contact Info) Description 11/07/2024 10:00 AM MAMMOGRAPHY TECHNOLOGIST Office Visit [facility] Oncology [facility] Hematology - Sukhjinder [address] [facility] [address] [place] [address] Josué Lopez MD [address] [facility] [address] [place] [address] documented as of this encounter Visit Diagnoses Not on filedocumented in this encounter Care Teams Bss Solution Architect Relationship Specialty Start Date End Date Jeanne Isabel MD [address] [place] [address] PCP - General Family Practice 05/04/23 documented as of this encounter
--- OUTSIDE RECORDS SUMMARY | 2024-10-31 13:36 | XMS_ITS | Encounter Summary ---
Author Organization [facility] Address [address] [place] [address] Care Team Providers Care Petrophysicist Name Role Phone Jeanne Isabel MD Primary Care Provider Encounter Details Date Type Department Care Team (Late st Contact Info) Description 10/29/2024 External Device Data STL ABSTRACTION Provider, Abstract NO ADDRESS ON FILE Social History Tobacco Use Types Packs/Day Years [...] st Contact Info) Description 11/07/2024 10:00 AM SALESPERSON TERRAZZO TILES Office Visit [facility] Oncology and Hematology - Sukhjinder [address] [place] [address] Josué Lopez MD [address] [facility] [address] [place] [address] documented as of this encounter Visit Diagnoses Not on filedocumented in this encounter Care Teams Petrophysicist Relationship Specialty Start Date End Date Jeanne Isabel MD [address] [place] [address] PCP - General Family Practice 05/04/23 documented as of this encounter
--- OUTSIDE RECORDS SUMMARY | 2024-10-31 13:36 | XMS_ITS | Referral Summary ---
Author Organization [facility] Address [facility] [place] [address] Care Team Providers Care Aviation Ordnance Officer Name Role Phone Unavailable Primary Care Provider Unavailabl e Source Comments [facility],non-[facility] Affiliates and Associated Physician Practices is amultiple site organization consisting of ambulatory clinics and hospital sitesin [place], [place], [place] and [place]. This disclosure is being madepursuant to the Care Everywhere program and may not contain all information available regarding this patient. Last updated 18.[facility] Social History Tobacco Use Types Packs/Day Years Used Date Smoking Tobacco: Never Assessed Sex and Gender Information Value Date Recorded Sex Assigned at Not on file Gender Identity Not on file Sexual Orientation Not on file Plan of Treatment Not on file
--- OUTSIDE RECORDS SUMMARY | 2024-10-31 13:36 | XMS_ITS | Encounter Summary ---
Author Organization [facility] Address [address] [place] [address] Phone Care Team Providers Care Cook Barbecue Name Role Phone Mari Kent MD Primary Care Provider [phone] Jeanne Isabel MD Primary Care Provider [phone] Reason for Visit * Reason Onset Date Comments Medication Refill 05/21/2020 Diovan-HCT & L evothyroxine Encounter Details Date Type Department Care Team (Late st Contact Info) Description 05/20/2020 Refill [facility] [address] [place] [address] Mari Kent MD [address] [place] [address] Medication Refill (Diovan-HCT & Levothyroxine) Social History Tobacco Use Types Packs/Day Years Used Date Smoking Tobacco: Never Smokeless Tobacco: Never Alcohol Use Standard Drinks/Week Comments No 0 (1 standard drink = 0.6 oz pur e alcohol) PHQ-2 Answer Date Recorded PHQ-2 Score 0 05/10/2019 Comments No Sex and Gender Information Value Date Recorded Sex Assigned at Not on file Legal Sex Female 11:00 PM CDT Gender Identity Not on file Sexual Orientation Not on file documented as of this encounter Miscellaneous Notes * Telephone Encounter - Andreina Ramey RN - 05/21/2020 9:43 AM CDT Medication failed the protocol, provider to review and approve the medication order. Requested Prescriptions Pending Prescriptions Disp Refills ??? levothyroxine (SYNTHROID) 100 MCG Tablet [Pharmacy Med Name: LEVOTHYROXINE 100 MCG TABLET] 90 Tab 1 Sig: TAKE ONE TABLET BY MOUTH DAILY Endocrinology: Hypothyroid Agents Failed - 05/20/2020 9:59 AM Failed - TSH in normal range and within 360 days TSH Date Value Ref Range Status 06/21/2016 2.710 0.270 - 4.200 mIU/L Final Passed - Valid encounter within last 12 months Past Office Visits Recent Outpatient Visits 10 months ago Essential hypertension [facility] - Mari Mendoza MD 1 year ago Essential hypertension [facility] - Mari Mendoza MD 1 year ago Infiltrating ductal carcinoma of right breast (HCC) [facility] - Mari Mendoza MD 1 year ago Physical exam, annual (Adult) [facility] - Mari Mendoza MD 2 years ago Essential hypertension [facility] Mari Kent MD Upcoming Appointments Future Appointments In 1 month Lopez Denis [facility] In 1 month Mari Kent MD [facility] CABIN MAN - Recent and Past Visits Recent Visits Date Type Provider Dept 07/09/19 Office Visit Mari Kent MD [facility] 03/26/19 Office Visit Mari Kent MD [facility] Showing recent visits within past 460 days with a meds authorizing provider and meeting all other requirements Future Appointments Date Type Provider Dept 07/02/20 Appointment Mari Kent MD [facility] [address] Showing future appointments within next 90 days with a meds authorizing provider and meeting all other requirements ??? valsartan-hydroCHLOROthiazide (DIOVAN-HCT) 320-25 MG Tablet [Pharmacy Med Name: VALSARTAN-HCTZ 320-25 MG TAB] 90 Tab 1 Sig: TAKE ONE TABLET BY MOUTH DAILY There is no refill protocol information for this order documented in this encounter Plan of Treatment Not on file documented as of this encounter Visit Diagnoses Diagnosis Hypothyroidism (acquired) Unspecified hypothyroidism Essential hypertension Unspecified essential hypertension documented in this encounter Additional Health Concerns Assessment Noted Time PHQ-9 Depression Total Score: 0 09/25/19 19 8:00 AM SCRIP CLERK documented as of this encounter Care Teams Cook Barbecue Relationship Specialty Start Date End Date Mari Kent MD PCP - General Family Medicine 09/15/15 05/23/22 Jeanne Isabel MD [address] [place] [address] PCP - General Family Medicine 05/24/22 documented as of this encounter
--- OUTSIDE RECORDS SUMMARY | 2024-10-31 13:36 | XMS_ITS | Clinical Summary ---
Author Organization [address] Address [address] [place] [address] Care Team Providers Care Transport Assistant Name Role Phone Jeanne Isabel MD Primary Care Provider [phone] Allergies Active Allergy Reactions Criticality Noted Date [...] on file Legal Sex Female 1:35 PM MANAGER CARDIOLOGY Gender Identity Not on file Sexual Orientation Not on file Obstetrics History Last Filed Vital Signs Vital Sign Reading [...] 07/01/2023 10:48 AM CDT Plan of Treatment Health Maintenance Due Date Last Done Comments Colon Cancer Screening-Colonoscopy 1955 Depression Screening 1955 Fall Risk Assessment 1955 Hepatitis C Screening 1955 Osteoporosis Screening-Bone Density Scan 1956 Hepatitis B Screening 1974 Pneumococcal vaccine 65+ (1 of 2 - PCV) 1975 Breast Cancer Screening-Mammogram 12/16/2014 014 Well Visit 65+ 2021 Covid-19 Vaccine (4 - 2023-2 5 season) 2024 2021, 12/03/2020, 11/12/2020 Influenza Vaccine (#1) 2024 , 07/09/2019, 11/23/2018, Additional history exists DTaP/Tdap/Td Vaccine (2 - Td or Tdap) 07/09/2029 07/09/2019, 06/25/2010 Zoster Vaccine Completed 10/14/2019, 12/0 11/2018, 09/16/2014 Procedures Procedure Name Priority Date/Time Associated Diagnosis Comments DIGITAL MAMMOGRAPHY Routine 12/16/2013 1 1:19 AM CDT from Last 3 Months or Most Recently Relevant to Health Maintenance Results * DIGITAL MAMMOGRAPHY (12/16/2013 11:19 AM CDT) Anatomical Region Laterality Modality Breast Mammography 12/16/2013 11:1 9 AM CDT Narrative 12/16/2013 11:55 AM CDT Vrl Screening Mamm Bi Acc#: [id number] Performed by: cd DATE OF EXAM: Dec [...] Attending : ALYSSA GUEVARA Procedure Note Provider, Shruti, - 01/11/2017 Vrl Screening Mamm Bi Acc#: [id number] Performed by: cd DATE OF EXAM: Dec [...] DR: ALYSSA GUEVARA Attending : ALYSSA GUEVARA Historical Provider MD MUNOZ MAMMO PROCEDURES Sabrina l Result from Last 3 Months or Most Recently Relevant to Health Maintenance Insurance MEDICARE [facility] MEDICARE Care Teams Transport Assistant Relationship Specialty Start Date End Date Jeanne Isabel MD PCP - General Family Medicine 10/30/21
--- OUTSIDE RECORDS SUMMARY | 2024-10-31 13:36 | XMS_ITS | Patient Health Summary ---
Author Organization [facility] Address [facility] [place] [address] Care Team Providers Care Linen Room Custodian Name Role Phone Unavailable Primary Care Provider Unavailabl e Note from [facility],non-owned Affiliates and Associated Physician Practices is amultiple site organization consisting of ambulatory clinics and hospital sitesin [place], [place], [place] and [place]. This disclosure is being madepursuant to the Care Everywhere program and may not contain all information available regarding this patient. Last updated 18.[facility] [employer] Social History Tobacco Use Types Packs/Day Years Used Date Smoking Tobacco: Never Assessed Sex and Gender Information Value Date Recorded Sex Assigned at Not on file Gender Identity Not on file Sexual Orientation Not on file Procedures * MRI BREAST BILAT WWO CONTRAST(Performed 12/10/2018) Performed for Estrogen receptor positive, Malignant neoplasm of upper-outer quadrant of both breasts in female, estrogen receptor positive * CREATININE BLOOD - POCT (IP) [facility](Performed 12/10/2018) Performed for Malignant neoplasm of upper-outer quadrant of both breasts in female, estrogen receptor positive Results * (ABNORMAL) MRI BREAST BILAT WWO CONTRAST (12/10/2018 7:56 AM CDT) Anatomical Region Laterality Modality Breast Bilateral Magnetic Resonan ce 12/10/2018 12:5 7 PM CDT Impressions 12/10/2018 1:03 PM CDT IMPRESSION: A 2.9 cm fluid collection with thick, nodular rim enhancement in the 10:00 posterior right breast likely corresponds to a combination of postbiopsy change and residual malignancy. There is no right axillary lymphadenopathy. No MR evidence of malignancy in the left breast. RECOMMENDATION: Continued surgical management. BIRADS CODE: BI-RADS category 6: Known biopsy-proven cancer. This report was electronically signed by ALE MORA M.D. on 12/10/2018 1:03 PM . Narrative 12/10/2018 1:03 PM CDT BILATERAL BREAST MRI WITHOUT AND WITH CONTRAST CLINICAL INDICATION: This is a 63 year-old woman with a recent diagnosis of right breast invasive ductal carcinoma who is referred for bilateral breast MRI to evaluate extent of disease. MENSTRUAL STATUS: The patient is postmenopausal. COMPARISON: MRI none. Right breast post clip mammography 11/20/2018. Right breast diagnostic mammography 11/09/2018. Left breast images from screening mammogram 10/31/2018. (The right breast images are not available). TECHNIQUE: Bilateral breast MRI was performed using a dedicated breast coil. The images were obtained prior to and following the administration of intravenous gadolinium. Precontrast imaging includes T1 and STIR axial images. Serial dynamic pre- and postcontrast enhanced gradient echo sequences with fat suppression were obtained in the axial projection. Exam was processed by and interpreted on a [employer] sql server developer including 3-D volume rendering, subtraction image processing and contrast kinetic analysis FINDINGS: There is scattered fibroglandular breast tissue. There is mild, symmetric background parenchymal enhancement. LEFT BREAST: There are no suspicious areas of enhancement or suspicious masses. The visualized axilla is unremarkable. RIGHT BREAST: In the 10 o'clock posterior breast, a hemorrhagic fluid collection with thick, nodular rim enhancement measures 2.9 x 1.8 cm. This likely corresponds to a combination of postbiopsy change and residual malignancy. There is susceptibility artifact from a biopsy clip within the collection (series 3, image 95). The visualized axilla is unremarkable. EXTRAMAMMARY FINDINGS: None. Rita Vernon DO MR ORDERABLES * CREATININE BLOOD - POCT (IP) [facility] (12/10/2018 6:47 AM CDT) Creatinine POCT 0.72 0.3 - 1.3 mg/dL [facility] eGFR POCT 60 60 ml/min [facility] Blood BLOOD SPECIMEN / Unknown 12/10/2018 6:47 AM CDT Rita Vernon DO LAB - POINT OF CARE ORDERABLES Performing Organization Address City/State/[facility] Co de Phone Number [facility] [address] [phone]
[2024-10-31 13:40] LABS: Basophils Percent Auto 0.3 % (0.2-1.2); Eosinophils Absolute Auto 0.1 K/mm3 (0-0.3); Eosinophils Percent Auto 1.4 % (0-4.4); Hemoglobin 14.6 g/dL (12.0-15.0); Immature Granulocyte Absolute 0.04 K/mm3 (0.00-0.031); Immature Granulocyte Percent A 0.4 % (0-0.5); Lymphocytes Absolute Auto 1.82 K/mm3 (0.9-3.2); Lymphocytes Percent Auto 19.1 % (18.3-44.2); Mean Corpuscular Hemoglobin 33.6 pg (26-34); Mean Corpuscular Volume 99.1 fl (80-100); Mean Platelet Volume 9.3 fl (7.4-10.4); Monocytes Absolute Auto 0.8 K/mm3 (0.1-0.6); Monocytes Percent Auto 8.3 % (2.6-8.5); Neutrophils Absolute Auto 6.7 K/mm3 (1.3-6.7); Neutrophils Percent Auto 70.5 % (45.5-73.1); Platelet Count Result 242 k/mm3 (150-375); Red Blood Count 4.34 M/mm3 (4.2-5.4); Red Cell Distribution Width 12.5 % (11.5-14.5); White Blood Count 9.5 K/mm3 (4.5-10.0)
[2024-10-31 16:33] LABS: Alanine Aminotransferase 41 U/L (6-35); Albumin Level 4.7 g/dL (3.5-5.1); Alkaline Phosphatase 104 U/L (38-126); Anion Gap 10 mmol/L (4-12); Aspartate Amino Transferase 72 U/L (14-36); Bilirubin,Total 1.2 mg/dL (0.2-1.3); Blood Urea Nitrogen 24 mg/dL (7-17); Calcium 10.2 mg/dL (8.4-10.2); Carbon Dioxide 29 mmol/L (22-30); Chloride 99 mmol/L (98-107); Estimated Glomerular Filt Rate > 60; Glucose 121 mg/dL (65-110); Potassium 4.2 mmol/L (3.4-5.0); Sodium 138 mmol/L (137-145)
[2024-11-02 01:33] LABS: CA 15-3 18 U/mL (<32)
== END 2024-10-31 13:24 | disposition home or self-care (01) ==
LOC: ANHLAB 13:24
PROVIDERS: PCP Family Medicine; Visit Provider Internal Medicine Hematology & Oncology
DX: C50.411 Malignant neoplasm of upper-outer quadrant of right female breast (principal); Z17.0 Estrogen receptor positive status [ER+]
CPT/HCPCS: 36415; 80053; 85025; 86300

== ENCOUNTER 2025-06-04 09:52 | Outpatient (CLI) | payer MEDICARE, SELFPAY ==
[2025-06-04 10:09] LABS: Hematocrit 40.6 % (37.0-47.0); Hemoglobin 14.0 g/dL (12.0-15.0); Immature Granulocyte Percent A 0.1 % (0-0.5); Lymphocytes Absolute Auto 1.83 K/mm3 (0.9-3.2); Mean Corpuscular HGB Conc 34.5 g/dl (32-36); Mean Corpuscular Hemoglobin 33.8 pg (26-34); Mean Corpuscular Volume 98.1 fl (80-100); Nucleated Red Blood Cells Absolute Auto 0.000 K/mm3 (0.0-0.012); Nucleated Red Blood Cells Perc 0.0 % (0.0-0.2); Platelet Count Result 235 k/mm3 (150-375); Red Blood Count 4.14 M/mm3 (4.2-5.4); White Blood Count 7.1 K/mm3 (4.5-10.0)
--- OUTSIDE RECORDS SUMMARY | 2025-06-04 10:40 | XMS_ITS | Clinical Summary ---
Author Organization [facility] Address [facility] [place] [address] Care Team Providers Care Long Chain Dyeing Machine Operator Name Role Phone Unavailable Primary Care Provider Unavailabl e Source Comments [facility],non-owned Affiliates and Associated Physician Practices is amultiple site organization consisting of ambulatory clinics and hospital sitesin [place], [place]. This disclosure is being madepursuant to the Care Everywhere program and may not contain all information available regarding this patient. Last updated 18.[facility] [employer] Social History Tobacco Use Types Packs/Day Years Used Date Smoking Tobacco: Never Assessed Comments Unknown Sex and Gender Information Value Date Recorded Sex Assigned at Not on file Legal Sex Female 11:06 AM CDT Gender Identity Not on file Sexual Orientation Not on file Plan of Treatment Health Maintenance Due Date Last Done Comments BONE DENSITY TESTING 1955 COLOGUARD (AGES 45-75) - COLON CA SCREENING 1955 COLON MONITORING 1956 COLONOSCOPY [...] (1 of 2) 2006 MAMMOGRAM 11/09/2020 11/09/2018, 10/13, 10/31/2018, Additional history exists DEPRESSION SCREENING 09/11/2024 COVID-19 VACCINE ( season) 2025 INFLUENZA VACCINE (#1) 2025 11/23/2018, 2015 Respiratory Syncytial Virus (RSV) Vaccine Pt: or [...] complete this topic MENINGOCOCCAL (Group B) VACCINE SHARED DECISION-MAKING Aged Out No longer eligible based on patient's age to complete this topic MENINGOCOCCAL GROUPS A/C/Y/W VACCINE Aged Out No longer eligible based on patient's age to complete this topic Insurance ANTHEM ANTHEM
--- OUTSIDE RECORDS SUMMARY | 2025-06-04 10:40 | XMS_ITS | Clinical Summary ---
Author Organization [facility] [address] Address [address] [place] [address] Care Team Providers Care Prize Jacker Name Role Phone Jeanne Isabel MD Primary Care Provider [phone] Allergies Active Allergy Reactions Criticality Noted Date Comments Amoxicillin-Pot Clavulanate Hives High 09/15/19 16 Cephalexin Hives High 09/15/2015 Medications glucosam/chond/ msm/boron/hyal (GLUCOSAMINE-CH ONDR, MSM-HYAL, ORAL) Take 1,288 mg by mouth. Active valsartan-hydro CHLOROthiazide (DIOVAN HCT) 320-25 mg tablet Take 1 Tablet by mouth. 09/25/2018 Active vit A/vit C/vit E/zinc/copper (ICAPS AREDS ORAL) Take by mouth. Active levothyroxine 100 mcg tablet 0 04/19/2019 Acti ve clindamycin (CLEOCIN) 150 mg capsule TAKE 1 CAPSULE BY MOUTH EVERY 6 HOURS UNTIL ALL TAKEN 01/20/2022 Active metFORMIN (GLUCOPHAGE XR) 500 mg Extended Release 24 hour tablet 10/07/2023 Active anastrozole (ARIMIDEX) 1 mg tabletIndicatio ns:Malignant neoplasm of upper-outer quadrant of right breast in female, estrogen receptor positive (CMS/HCC) TAKE ONE TABLET BY MOUTH DAILY 90 Tablet 3 01/02/2025 Active Active Problems Patient Care Coordination No te [...] Encounters Date Type Department Care Team Description 05/27/2025 External Device Data STL ABSTRACTION Provider, Abstract 05/13/2025 External Device Data [facility] ABSTRACTION Provider, Abstract 04/16/2025 External Device Data [facility] ABSTRACTION Provider, Abstract 04/15/2025 External Device Data [facility] ABSTRACTION Provider, Abstract 03/26/2025 External Device Data ST[facility] ABSTRACTION Provider, Abstract 03/25/2025 External Device Data STL ABSTRACTION Provider, Abstract from Last 3 Months Family History Medical [...] Sign Reading Time Taken Comments Blood Pressure 129/80 11/07/2024 10:05 AM CONTINUUM OF CARE MANAGER Pulse 79 11/07/2024 10:04 AM CONTINUUM OF CARE MANAGER Temperature 36.4 C (97.6 F) 11/07/2024 10:04 AM CONTINUUM OF CARE MANAGER Respiratory Rate 15 11/07/2024 10:0 4 AM CONTINUUM OF CARE MANAGER Oxygen Saturation 98% 11/07/2024 10: 04 AM CONTINUUM OF CARE MANAGER Inhaled Oxygen Concentration - - Weight 109.6 kg (241 lb 9.6 oz) 025 10:04 AM CONTINUUM OF CARE MANAGER Height 162.6 cm (5' 4) 10/17/2023 10:5 2 AM CONTINUUM OF CARE MANAGER Body Mass Index 41.47 10/17/2023 10:52 AM CONTINUUM OF CARE MANAGER Plan of Treatment Upcoming Encounters Date Type Department Care Team (Late st Contact Info) Description 06/16/2025 11:15 AM CDT Office Visit [facility] Oncology and Hematology [facility] [address] [place] [address] Josué Lopez MD [address] [place] [address] Health Maintenance Due Date Last Done Comments Pre-Diabetes and Diabetes Screening 1955 Traditional Medicare (ACO) A nnual Wellness Visit 1975 COLORECTAL SCREENING 2001 Colorectal Cancer Screening 2001 FIT-DNA Q 3 years 2001 FIT/FOBT Q 1 year 2001 Flex Sig/CT Colonography Q 5 years 2001 PNEUMOCOCCAL VACCINE 50+ YEA RS (1 of 1 - PCV) 2006 RSV VACCINE (60+ or ) (1 - Risk 60-74 years 1-dose series) 2016 INFLUENZA VACCINE (#1) 2025 , 07/09/2019, 11/23/2018, Additional history exists COVID-19 Vaccine ( - 2024-2 6 season) 2025 03/28/2022, 2021, 12/03/2020, Additional history exists BREAST CANCER SCREENING 09/24/2025 09/24/19, 10/17/2023, 10/13/2022, Additional history exists OSTEOPOROSIS SCREENING 04/23/2029 04/23/2024, 2020 DTAP/TDAP/TD VACCINES (2 - T d or Tdap) 07/09/2029 07/09/2019 ZOSTER VACCINE Completed 10/14/2019, 11/2018, 09/16/2014 Procedures Procedure Name Priority Date/Time Associated Diagnosis Comments MAMMO 3D SASHA SCREEN BILAT W OR WO CAD Routine 09/24/2024 9:53 AM CONTINUUM OF CARE MANAGER Visit for screening mammogram XR DEXA BONE DENSITY AXIAL 1 OR MORE SITES Routine 11/03/2020 Osteopenia of multiple sites from Last 3 Months or Most Recently Relevant to Health Maintenance Results * MAMMO 3D SASHA SCREEN BILAT W OR WO CAD (09/24/2024 9:53 AM CONTINUUM OF CARE MANAGER) Anatomical Region Laterality Modality Breast Bilateral Mammography 09/24/2024 9:53 AM CONTINUUM OF CARE MANAGER Impressions 09/24/2024 11:54 AM CONTINUUM OF CARE MANAGER IMPRESSION: No mammographic evidence of malignancy. RECOMMENDATIONS: Routine screening mammogram in one year. DICTATION LOCATION: [facility] Narrative 09/24/2024 11:54 AM CONTINUUM OF CARE MANAGER EXAM: BILATERAL SCREENING FULL-FIELD DIGITAL MAMMOGRAM WITH [...] SITES (11/03/2020) Anatomical Region Laterality Modality Other us Josué Lopez MD DIAGNOSTIC IMAGING ORDERABLES F inal Result from Last 3 Months or Most Recently Relevant to Health Maintenance Insurance MEDICARE PART A AND B [facility] SUPP MEDICARE PART A AND B [facility] SUPP Care Teams Prize Jacker Relationship Specialty Start Date End Date Jeanne Isabel MD [address] [place] [address] PCP - General Family Practice 05/04/23
--- OUTSIDE RECORDS SUMMARY | 2025-06-04 10:40 | XMS_ITS | Encounter Summary ---
Author Organization [facility] Address [address] [place] [address] Care Team Providers Care Business Office Coordinator Name Role Phone Jeanne Isabel MD Primary Care Provider [phone] Encounter Details Date Type Department Care Team (Late Contact Info) Description 01/15/2019 Chart Note [facility] Radiation Therapy [address] [place] [address] [place] [address] [place] [address] Social History Tobacco Use Types [...] Description 06/16/2025 11:15 AM CDT Office Visit [facility] Oncology and Hematology - Sukhjinder [address] [facility] [address] [place] [address] Josué Lopez MD [address] [place] [address] documented as of this encounter Visit Diagnoses Not on filedocumented in this encounter Care Teams Business Office Coordinator Relationship Specialty Start Date End Date Jeanne Isabel MD [address] [place] [address] PCP - General Family Practice 05/04/23 documented as of this encounter
--- OUTSIDE RECORDS SUMMARY | 2025-06-04 10:40 | XMS_ITS | Clinical Summary ---
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 Gender Identity Not on file Sexual Orientation [...] 10:48 AM CDT Height 162.6 cm (5' 4) 07/01/2023 10:48 AM CDT Body Mass Index [...] Visit 65+ 2021 Covid-19 Vaccine (4 - 2024-2 6 season) 2025 2021, 12/03/2020, 11/12/2020 Influenza Vaccine (#1) 2025 , 07/09/2019, 11/23/2018, Additional history exists DTaP/Tdap/Td [...] AM CDT Vrl Screening Mamm Bi Acc#: [id number] Performed by: cd DATE OF EXAM: Dec [...] - 01/11/2017 Vrl Screening Mamm Bi Acc#: [id number] Performed by: cd DATE OF EXAM: Dec [...] Recently Relevant to Health Maintenance Insurance MEDICARE [facility] MEDICARE Care Teams Natural Sciences Professor Relationship Specialty Start Date End Date Jeanne Isabel MD PCP - General Family Medicine 10/30/21
--- OUTSIDE RECORDS SUMMARY | 2025-06-04 10:40 | XMS_ITS | Clinical Summary ---
Author Organization [facility] Address [address], [address] [address] Phone Care Team Providers Care Organic Preparation Technician Name Role Phone Jeanne Isabel MD Primary Care Provider [phone] Allergies Active Allergy Reactions Criticality Noted Date [...] Pf, 3 0 Mcg/0.3 Ml Dose, Tigre-sucrose (Loomia carlisle top) 03/28/2022 Influenza Vaccine, Quadrivalent, PF [...] 8:54 AM CDT Height 162.6 cm (5' 4) 07/09/2019 8:54 AM CDT Body Mass Index 43.39 07/09/2019 8:54 AM CDT Plan of Treatment Health Maintenance Due Date Last Done Comments Hepatitis C Virus (HCV) Screening 1955 Pneumococcal Immunization (50+ years) (1 of 2 - PCV) 1975 Immunochemical Fecal Occult Blood 2001 Respiratory Syncytial Virus (RSV) Immunization (Adult) (1 - Risk 60-74 years 1-dose series) 2016 Mammogram 10/06/2021 10/06/2020, 10/13, 02/02/2016 Cologuard 10/18/2021 10/18/2018 Influenza Immunization (#1) 05/12/202501/2021, 07/09/2019, 11/23/2018, Additional history exists SARS-COV-2 Immunization (2024- season) 2025 03/28/2022, 2021, 12/03/2020, Additional history exists Colonoscopy 10/18/2028 10/18/2018 Colorectal Cancer Screening 10/18/2028 Td Immunization Every 10 Years (Adults With 1 Tdap) 07/09/2029 07/09/2019, 06/25/2010 Zoster Immunization Completed 10/14/2019, 08/13/2019, 09/16/2014 Hepatitis B Immunization Aged Out No longer eligible based on patient's age to complete this topic Human Papillomavirus (HPV) Immunization Aged Out No longer eligible based on patient's age to complete this topic Meningococcal Immunization (ACWY) Aged Out No longer eligible based on patient's age to complete this topic Rotavirus Immunization Aged Out No lo nger eligible based on patient's age to complete this topic Procedures Procedure Name Priority Date/Time Associated Diagnosis Comments [facility] SCREENING BILATERAL DIGITAL W CAD W SASHA Routine 10/31/2018 8:53 AM STOCK COUNTER Screening for malignant neoplasm of breast COLOGUARD Routine 10/18/2018 7:05 AM STOCK COUNTER Screening for malignant neoplasm of colon Screening for malignant neoplasm of the rectum from Last 3 Months or Most Recently Relevant to Health Maintenance Results * [facility] SCREENING BILATERAL DIGITAL W CAD W SASHA (10/31/2018 8:53 AM STOCK COUNTER) Anatomical Region Laterality Modality breast Bilateral Mammography 10/31/2018 8:17 AM STOCK COUNTER Narrative 10/31/2018 3:16 PM STOCK COUNTER - [facility] SCREENING BILATERAL DIGITAL W CAD W SASHA [...] Comparison is made to exams dated: 02/02/2016 [facility], 12/16/2013, and 03/30/2010 [facility]. BREAST TISSUE:There are scattered fibroglandular densities in [...] contacted. Electronically signed by: Anne coleman/crystal:10/31/2018 10:14:16 Food Scientist: Ella Felder)(Negar), [facility] letter sent: Additional Imaging Reading location: [facility] BI-RADS: 0 Additional Imaging Evaluation Needed Procedure Note Anne Leon MD - 10/31/2018 - [facility] SCREENING BILATERAL DIGITAL W CAD W SASHA [...] Comparison is made to exams dated: 02/02/2016 [facility], 12/16/2013, and 03/30/2010 [facility]. BREAST TISSUE:There are scattered fibroglandular densities in [...] contacted. Electronically signed by: Anne coleman/crystal:10/31/2018 10:14:16 Food Scientist: Ella Felder)(M), [facility] letter sent: Additional Imaging Reading location: [facility] BI-RADS: 0 Additional Imaging Evaluation Needed us Mari Kent MD IMG MAMMO ORDERABLES Final R esult * COLOGUARD (10/18/2018 7:05 AM STOCK COUNTER) Cologuard Negative Not Applicable ReferralCandy Comment: A negative result indicates a low [...] screened with both Cologuard and colonoscopy. (Liang Gallagher. et al, N Engl J Med 2014;370(14):3344-1702) COLOGUARD RE-SCREENING RECOMMENDATION: Periodic routine colorectal cancer screening is an important part of preventive healthcare for asymptomatic persons at average risk for colorectal cancer. Following a negative Cologuard result, the [place] [employer] Society and U.S. Multi-Society Task Force screening guidelines recommend a Cologuard re-screening interval of 3 years. References: [place] [employer] (ACS). Colorectal cancer prevention and early detection. [place], [place]: [place] [employer]; [updated 2015Jan 02]. https://www.cancer.org/cancer/yotak-hnercy-pwebxq/xgponvlyb-toatsnjtc-ftvnush/ acs-recommendations.html. Accessed May 11, 2018; Tal DK, Lizbeth ANDERSON, Daniel ACOSTA, Colorectal Cancer Screening: Recommendations for Physicians and Patients from the U.S. Multi-Society Task Force on Colorectal Cancer Screening, Am J Gastroenterology 2017; 112:4416-9249. Test Type: Composite algorithmic analysis of stool [...] can be accessed at the following location: www.[employer]/results. Additional description of the Cologuard test process, warnings and precautions can be found at www.cologuardtest.com. Rx Only. Stool specimen (specimen) 10/18/2018 7:05 AM STOCK COUNTER 10/19/2018 10:20 AM STOCK COUNTER us Mari Kent MD BODY FLUIDS & STOOLS ORDERAB LES Final Result [employer] [address] [place] [address], [place] [phone] from Last 3 Months or Most Recently Relevant to Health Maintenance Insurance [facility] Care Teams Organic Preparation Technician Relationship Specialty Start Date End Date Jeanne Isabel MD [address] [place] [address] PCP - General Family Medicine 05/24/22
[2025-06-04 13:30] LABS: Alanine Aminotransferase 38 U/L (6-35); Albumin Level 4.4 g/dL (3.5-5.1); Alkaline Phosphatase 91 U/L (38-126); Anion Gap 9 mmol/L (4-12); Aspartate Amino Transferase 45 U/L (14-36); Bilirubin,Total 0.8 mg/dL (0.2-1.3); Blood Urea Nitrogen 24 mg/dL (7-17); Calcium 9.8 mg/dL (8.4-10.2); Carbon Dioxide 27 mmol/L (22-30); Chloride 100 mmol/L (98-107); Estimated Glomerular Filt Rate 59; Glucose 160 mg/dL (65-110); Potassium 4.7 mmol/L (3.4-5.0); Sodium 136 mmol/L (137-145); Total Protein 7.8 g/dL (6.3-8.2)
== END 2025-06-04 09:53 | disposition home or self-care (01) ==
LOC: ANHLAB 09:53
PROVIDERS: PCP Family Medicine; Visit Provider Internal Medicine Hematology & Oncology
DX: C50.411 Malignant neoplasm of upper-outer quadrant of right female breast (principal); Z17.0 Estrogen receptor positive status [ER+]
CPT/HCPCS: 36415; 80053; 85025; 86300